=== PATIENT | female | born 1935 ===

== ENCOUNTER 2023-07-18 20:15 | Inpatient (IN) | payer MEDICARE, OTHER ==
[~2023-07-18] VITALS: Ht 152.4 cm; Wt 61.7 kg
[2023-07-18 20:25] VITALS: BP 130/60; TEMP 98; O2SAT 93
[2023-07-18] MEDS ORDERED: LEVO50TA8 PO (22:10)
[2023-07-18] MEDS ORDERED: SIMV-46 PO (22:10)
[2023-07-18] MEDS ORDERED: FURO20TA4 PO (22:10)
[2023-07-18] MEDS ORDERED: PRED20TA PO (22:10)
[2023-07-18] MEDS ORDERED: LIOT5TAB11 PO (22:10)
[2023-07-18] MEDS ORDERED: LISI20TA30 PO (22:10)
[2023-07-18] MEDS ORDERED: APIX2.5T PO (22:10)
[2023-07-18] MEDS ORDERED: OXYC-128 PO (22:10)
[2023-07-18] MEDS ORDERED: GLUC-199 PO (22:10)
[2023-07-18] MEDS ORDERED: GABA600T12 PO (22:10)
[2023-07-18] MEDS ORDERED: ISOS20TA15 PO (22:10)
[2023-07-18] MEDS ORDERED: ACET-73 PO (22:10)
[2023-07-18] MEDS ORDERED: REMEDY ESSENTIAL ZINC PASTE 113 GM TOP SCH (23:45)
[2023-07-19 06:03] VITALS: BP 150/61; TEMP 98.6; O2SAT 94
[2023-07-19] MEDS ORDERED: AMLO5TAB4 PO (12:53)
[2023-07-19] MEDS ORDERED: LEVO88TA5 PO (12:59)
[2023-07-19] MEDS ORDERED: METO-357 PO (12:59)
[2023-07-19] MEDS ORDERED: GLIP10TA11 PO (12:59)
[2023-07-19] MEDS ORDERED: PANT40TA49 PO (13:06)
[2023-07-19] MEDS ORDERED: CARV6.25 PO (13:06)
[2023-07-19] MEDS ORDERED: ICOS1CAP PO (13:06)
[2023-07-19] MEDS ORDERED: ATOR40TA PO (13:06)
[2023-07-19] MEDS ORDERED: LOSA25TA27 PO (13:06)
[2023-07-19] MEDS ORDERED: LEVE500T9 PO (13:07)
[2023-07-19] MEDS ORDERED: METF-494 PO (13:08)
[2023-07-19 15:41] VITALS: BP 132/52; TEMP 98.6; O2SAT 94
[2023-07-19] MEDS ORDERED: glipiZIDE 10 MG TABLET PO SCH (16:30)
[2023-07-19] MEDS ORDERED: levETIRAcetam 500 MG TABLET PO SCH (17:00)
[2023-07-19] MEDS ORDERED: Icosapent Ethyl (Vascepa) 2 CAP) PO SCH (17:00)
[2023-07-19] MEDS ORDERED: DEXTROSE 50% 50 ML DISP.SYRIN IV PRN (17:45)
[2023-07-19] MEDS: CARVEDILOL 6.25 MG TABLET PO SCH (17:55)
[2023-07-19] MEDS: AMLODIPINE 5 MG TABLET PO SCH (17:55)
[2023-07-19] MEDS ORDERED: METFORMIN XR 500 MG TAB.SR.24H PO SCH (18:00)
[2023-07-19] MEDS: METFORMIN XR 500 MG TAB.SR.24H PO SCH (18:32)
[2023-07-19 20:20] VITALS: BP 104/46; TEMP 97.9; O2SAT 94
[2023-07-19] MEDS: ATORVASTATIN 40 MG TABLET PO SCH (21:04)
[2023-07-19] MEDS: FAMOTIDINE 20 MG TABLET PO SCH (21:07)
[2023-07-19] MEDS: BLOOD SUGAR DIAGNOSTIC 1 EACH STRIP VI SCH (21:19)
[2023-07-20 06:00] VITALS: TEMP 97.8
[2023-07-20] MEDS: LEVOTHYROXINE SODIUM 88 MCG TABLET PO SCH (06:41)
[2023-07-20] MEDS ORDERED: PANTOPRAZOLE SODIUM 40 MG TABLET.DR PO SCH (07:00)
[2023-07-20 07:29] LABS: BASOPHILS % (AUTO) 0.5 % (0.0-2.0); EOSINOPHILS # (AUTO) 0.1 K/uL (0.0-0.7); HEMATOCRIT 27.6 % (31.2-41.9); HEMOGLOBIN 9.2 g/dL (10.9-14.3); LYMPHOCYTES # (AUTO) 1.4 K/uL (0.8-4.8); LYMPHOCYTES % (AUTO) 24.8 % (20.5-51.5); MEAN CORPUSCULAR HEMOGLOBIN 27.2 uug (24.7-32.8); MEAN CORPUSCULAR HGB CONC 33 g/dL (32.3-35.6); MEAN CORPUSCULAR VOLUME 81.6 fL (75.5-95.3); MONOCYTES # (AUTO) 0.4 K/uL (0.1-1.30); MONOCYTES % (AUTO) 7.1 % (0.0-11.0); NEUTROPHILS # (AUTO) 3.7 K/uL (1.8-8.9); NEUTROPHILS % (AUTO) 65.6 % (38.5-71.5); PLATELET COUNT (AUTO) 255 K/uL (179-408); RED BLOOD CELL COUNT(AUTO) 3.38 MIL/uL (3.63-4.92); RED CELL DISTRIBUTION WIDTH 16.6 % (12.3-17.7); WHITE BLOOD COUNT (AUTO) 5.7 K/uL (3.8-11.8)
[2023-07-20 07:45] LABS: DIFFERENTIAL COMMENT 1
[2023-07-20 07:50] LABS: CALCIUM 8.5 mg/dL (8.5-10.1); CARBON DIOXIDE 27 mmol/L (21-32); CHLORIDE 106 mmol/L (98-107); CREATININE 0.6 mg/dL (0.6-1.3); GLUCOSE 89 mg/dL (74-106); MAGNESIUM 1.8 mg/dL (1.8-2.4); POTASSIUM 3.1 mmol/L (3.5-5.1); SODIUM SERUM 140 mmol/L (136-145); UREA NITROGEN, BLOOD 11 mg/dL (7-18)
[2023-07-20] MEDS ORDERED: LOSARTAN POTASSIUM 25 MG TABLET PO SCH (09:00)
[2023-07-20] MEDS: AMLODIPINE 5 MG TABLET PO SCH (09:28)
[2023-07-20] MEDS: PROPRANOLOL HCL 20 MG TABLET PO SCH (09:28)
[2023-07-20] MEDS: INSULIN REGULAR, HUMAN 300 UNIT/3 ML VIAL SQ PRN (09:30)
[2023-07-20] MEDS: POTASSIUM CHLORIDE 20 MEQ TAB.PRT.SR PO ONE (09:48)
[2023-07-20] MEDS: PROPRANOLOL HCL 40 MG TABLET PO SCH (12:44)
[2023-07-20] MEDS ORDERED: PROPRANOLOL HCL 20 MG TABLET PO SCH (13:00)
[2023-07-20 15:43] VITALS: BP 97/45; TEMP 97.5; O2SAT 96
[2023-07-20 20:00] VITALS: BP 110/56; TEMP 98.5; O2SAT 94
[2023-07-21 06:00] VITALS: BP 146/48; TEMP 97.6; O2SAT 98
[2023-07-21 15:17] VITALS: BP 112/48; TEMP 97.8; O2SAT 98
[2023-07-21 20:00] VITALS: BP 116/48; TEMP 98; O2SAT 93
[2023-07-22 06:00] VITALS: BP 123/50; TEMP 97.4; O2SAT 95
[2023-07-22] MEDS: PRIMIDONE 50 MG TABLET PO SCH (09:20)
[2023-07-22 11:48] VITALS: BP 121/67; TEMP 97.7; O2SAT 97
[2023-07-22 16:09] VITALS: BP 84/66; TEMP 97.4; O2SAT 98
[2023-07-22 17:08] VITALS: BP 125/58; TEMP 97.4; O2SAT 98
[2023-07-22] MEDS: REMEDY ESSENTIAL ZINC PASTE 113 GM TOP PRN (20:59)
[2023-07-22 21:00] VITALS: BP 147/55; TEMP 97.5; O2SAT 97
[2023-07-23] MEDS: ACETAMINOPHEN 325 MG TABLET PO PRN (03:08)
[2023-07-23 04:00] VITALS: BP 126/41; TEMP 98.7; O2SAT 91
[2023-07-23 07:10] LABS: BASOPHILS % (AUTO) 0.6 % (0.0-2.0); EOSINOPHILS # (AUTO) 0.1 K/uL (0.0-0.7); EOSINOPHILS % (AUTO) 1.9 % (0.0-7.0); HEMATOCRIT 27.5 % (31.2-41.9); HEMOGLOBIN 9.5 g/dL (10.9-14.3); LYMPHOCYTES # (AUTO) 1.8 K/uL (0.8-4.8); LYMPHOCYTES % (AUTO) 29.6 % (20.5-51.5); MEAN CORPUSCULAR HEMOGLOBIN 28.1 uug (24.7-32.8); MEAN CORPUSCULAR HGB CONC 35 g/dL (32.3-35.6); MEAN CORPUSCULAR VOLUME 81.6 fL (75.5-95.3); MONOCYTES # (AUTO) 0.4 K/uL (0.1-1.30); NEUTROPHILS # (AUTO) 3.7 K/uL (1.8-8.9); NEUTROPHILS % (AUTO) 60.9 % (38.5-71.5); PLATELET COUNT (AUTO) 267 K/uL (179-408); RED BLOOD CELL COUNT(AUTO) 3.37 MIL/uL (3.63-4.92); RED CELL DISTRIBUTION WIDTH 16.4 % (12.3-17.7)
[2023-07-23 07:22] LABS: DIFFERENTIAL COMMENT 1
[2023-07-23 07:30] LABS: CARBON DIOXIDE 27 mmol/L (21-32); CHLORIDE 105 mmol/L (98-107); CREATININE 0.7 mg/dL (0.6-1.3); GLUCOSE 95 mg/dL (74-106); MAGNESIUM 1.6 mg/dL (1.8-2.4); PHOSPHOROUS 4.1 mg/dL (2.5-4.9); SODIUM SERUM 139 mmol/L (136-145); UREA NITROGEN, BLOOD 14 mg/dL (7-18)
[2023-07-23] MEDS ORDERED: CLONIDINE-TTS 1 PATCH TD SCH (09:00)
[2023-07-23] MEDS ORDERED: CLONIDINE TTS 2 PATCH TD SCH (09:00)
[2023-07-23] MEDS: POTASSIUM CHLORIDE 10 MEQ TAB.PRT.SR PO ONE (10:26)
[2023-07-23] MEDS ORDERED: BENZOCAINE/MENTH/CETYLPYRD LOZENGE MM PRN (10:45)
[2023-07-23] MEDS: MAGNESIUM OXIDE 400 MG TABLET PO ONE (13:24)
[2023-07-23 16:37] VITALS: BP 113/56; TEMP 97.6; O2SAT 95
[2023-07-24 05:16] VITALS: BP 118/55; TEMP 97.1
[2023-07-24] MEDS: ENSURE ENLIVE (VAN) 240 ML LIQUID PO SCH (09:03)
[2023-07-24 13:06] VITALS: BP 95/44
[2023-07-24 16:48] VITALS: BP 128/58; TEMP 97.6; O2SAT 97
[2023-07-24 20:00] VITALS: BP 146/59; TEMP 98.1; O2SAT 95
[2023-07-25 06:00] VITALS: BP 114/52; TEMP 97.8; O2SAT 96
[2023-07-25 16:00] VITALS: BP 127/50; TEMP 98.3; O2SAT 97
[2023-07-25 20:00] VITALS: TEMP 98.3
[2023-07-26 06:00] VITALS: TEMP 98.3
[2023-07-26 13:46] VITALS: BP 97/36
[2023-07-26 16:26] VITALS: BP 108/47; TEMP 98.1; O2SAT 94
[2023-07-26 20:00] VITALS: BP 110/52; TEMP 98.2; O2SAT 95
[2023-07-27 06:00] VITALS: BP 102/51; TEMP 98; O2SAT 96
[2023-07-27 07:40] LABS: BASOPHILS % (AUTO) 0.8 % (0.0-2.0); EOSINOPHILS # (AUTO) 0.1 K/uL (0.0-0.7); EOSINOPHILS % (AUTO) 2.2 % (0.0-7.0); HEMATOCRIT 27.8 % (31.2-41.9); HEMOGLOBIN 9.2 g/dL (10.9-14.3); LYMPHOCYTES # (AUTO) 1.9 K/uL (0.8-4.8); LYMPHOCYTES % (AUTO) 29.8 % (20.5-51.5); MEAN CORPUSCULAR HEMOGLOBIN 27.1 uug (24.7-32.8); MEAN CORPUSCULAR HGB CONC 33 g/dL (32.3-35.6); MEAN CORPUSCULAR VOLUME 81.5 fL (75.5-95.3); MONOCYTES # (AUTO) 0.4 K/uL (0.1-1.30); MONOCYTES % (AUTO) 6.8 % (0.0-11.0); NEUTROPHILS # (AUTO) 3.8 K/uL (1.8-8.9); NEUTROPHILS % (AUTO) 60.4 % (38.5-71.5); PLATELET COUNT (AUTO) 259 K/uL (179-408); RED BLOOD CELL COUNT(AUTO) 3.41 MIL/uL (3.63-4.92); WHITE BLOOD COUNT (AUTO) 6.3 K/uL (3.8-11.8)
[2023-07-27 07:56] LABS: DIFFERENTIAL COMMENT 1
[2023-07-27 08:06] LABS: THYROID STIMULATING HORMONE 3.393 mIU/mL (0.358-3.740)
[2023-07-27 08:18] LABS: ALANINE AMINOTRANSFERASE 12 U/L (14-59); ALBUMIN 2.6 g/dL (3.4-5.0); ALKALINE PHOSPHATASE 100 U/L (50-136); ASPARTATE AMINOTRANSFERASE 14 U/L (15-37); BILIRUBIN,TOTAL 0.9 mg/dL (0.2-1.0); CALCIUM 8.2 mg/dL (8.5-10.1); CARBON DIOXIDE 28 mmol/L (21-32); CHLORIDE 104 mmol/L (98-107); CHOLESTEROL 92 mg/dL (<200); CREATININE 0.6 mg/dL (0.6-1.3); GLUCOSE 99 mg/dL (74-106); HDL CHOLESTEROL 33 mg/dL (40-60); MAGNESIUM 1.6 mg/dL (1.8-2.4); PHOSPHOROUS 3.7 mg/dL (2.5-4.9); POTASSIUM 3.1 mmol/L (3.5-5.1); SODIUM SERUM 135 mmol/L (136-145); TOTAL PROTEIN, SERUM 5.7 g/dL (6.4-8.2); TRIGLYCERIDES 141 MG/DL (30-150); UREA NITROGEN, BLOOD 11 mg/dL (7-18)
[2023-07-27 08:30] VITALS: BP 114/52; TEMP 98; O2SAT 98
[2023-07-27 08:57] LABS: IRON, SERUM 20 ug/dL (50-175)
[2023-07-27] MEDS: POTASSIUM CHLORIDE 20 MEQ TAB.PRT.SR PO ONE (11:08)
[2023-07-27] MEDS: MAGNESIUM OXIDE 400 MG TABLET PO ONE (11:09)
[2023-07-27 14:48] VITALS: BP 106/40; TEMP 98.4; O2SAT 95
[2023-07-27] MEDS: GLUCERNA SHAKE 237 ML CAN PO SCH (17:54)
[2023-07-27] MEDS: PRIMIDONE 50 MG TABLET PO SCH (17:56)
[2023-07-27 20:00] VITALS: BP 108/63; TEMP 98.1; O2SAT 93
[2023-07-28 06:00] VITALS: BP 126/58; TEMP 98.3; O2SAT 94
[2023-07-28 16:00] VITALS: BP 113/42; TEMP 98; O2SAT 96
[2023-07-28 19:30] VITALS: BP 118/53; TEMP 98.4; O2SAT 95
[2023-07-28 20:00] VITALS: BP 118/53; TEMP 98.4; O2SAT 95
[2023-07-29 06:01] VITALS: BP 125/50; TEMP 97.7; O2SAT 95
[2023-07-29 09:39] LABS: BASOPHILS # (AUTO) 0.3 K/UL (0.0-0.2); BASOPHILS % (AUTO) 3.9 % (0.0-2.0); EOSINOPHILS # (AUTO) 0.2 K/uL (0.0-0.7); EOSINOPHILS % (AUTO) 2.6 % (0.0-7.0); HEMOGLOBIN 9.4 g/dL (10.9-14.3); LYMPHOCYTES # (AUTO) 1.4 K/uL (0.8-4.8); LYMPHOCYTES % (AUTO) 19.9 % (20.5-51.5); MEAN CORPUSCULAR HEMOGLOBIN 26.3 uug (24.7-32.8); MEAN CORPUSCULAR HGB CONC 33 g/dL (32.3-35.6); MEAN CORPUSCULAR VOLUME 80.8 fL (75.5-95.3); MONOCYTES # (AUTO) 0.4 K/uL (0.1-1.30); MONOCYTES % (AUTO) 5.3 % (0.0-11.0); NEUTROPHILS # (AUTO) 4.7 K/uL (1.8-8.9); NEUTROPHILS % (AUTO) 68.3 % (38.5-71.5); PLATELET COUNT (AUTO) 298 K/uL (179-408); RED BLOOD CELL COUNT(AUTO) 3.59 MIL/uL (3.63-4.92); RED CELL DISTRIBUTION WIDTH 16.3 % (12.3-17.7); WHITE BLOOD COUNT (AUTO) 6.9 K/uL (3.8-11.8)
[2023-07-29 09:45] LABS: CALCIUM 8.2 mg/dL (8.5-10.1); CARBON DIOXIDE 26 mmol/L (21-32); CHLORIDE 103 mmol/L (98-107); CREATININE 0.8 mg/dL (0.6-1.3); GLUCOSE 215 mg/dL (74-106); POTASSIUM 3.4 mmol/L (3.5-5.1); SODIUM SERUM 138 mmol/L (136-145); UREA NITROGEN, BLOOD 11 mg/dL (7-18)
[2023-07-29 10:11] LABS: DIFFERENTIAL COMMENT 1
[2023-07-29 12:00] VITALS: BP 108/63; TEMP 98.3; O2SAT 97
[2023-07-29 16:54] VITALS: BP 115/40; TEMP 98.2; O2SAT 95
[2023-07-29 20:00] VITALS: BP 121/57; TEMP 98.3; O2SAT 95
[2023-07-29] MEDS: MIRALAX 17 GM POWD.PACK PO SCH (20:37)
[2023-07-30 06:07] VITALS: BP 131/46; TEMP 97.7; O2SAT 96
[2023-07-30 16:01] VITALS: BP 128/58; TEMP 98.7; O2SAT 99
[2023-07-30 20:00] VITALS: BP 113/42; TEMP 97.4; O2SAT 99
[2023-07-31 04:45] VITALS: BP 106/43; TEMP 98.2; O2SAT 98
[2023-07-31 09:00] VITALS: BP 111/48; TEMP 98.1; O2SAT 95
[2023-07-31 15:52] VITALS: BP 107/42; TEMP 98.9; O2SAT 95
[2023-07-31 19:40] VITALS: BP 115/45; TEMP 98.6; O2SAT 96
[2023-08-01 06:04] VITALS: BP 118/63; TEMP 97.9; O2SAT 95
[2023-08-01 08:05] VITALS: BP 120/52; O2SAT 96
[2023-08-01 16:00] VITALS: BP 117/60; TEMP 97.6; O2SAT 96
[2023-08-01 19:30] VITALS: BP 112/55; TEMP 98.2; O2SAT 97
[2023-08-02 06:27] VITALS: BP 137/50; TEMP 98.2; O2SAT 95
[2023-08-02 07:46] VITALS: BP 117/55; TEMP 97.9; O2SAT 97
[2023-08-02] MEDS ORDERED: HYDROCORTISONE 2.5 % RECTAL CREAM 28.35 GM TUBE RC PRN (11:00)
[2023-08-02 12:56] VITALS: BP 99/39
[2023-08-02 16:00] VITALS: BP 132/69; TEMP 92.2; O2SAT 98
[2023-08-02 16:56] VITALS: BP 108/54; TEMP 97.8; O2SAT 95
[2023-08-02] MEDS: LIDOCAINE 5% OINT 35.44 GM TUBE TOP PRN (20:12)
[2023-08-02] MEDS: HYDROCORTISONE 2.5 % RECTAL CREAM 28.35 GM TUBE RC PRN (20:12)
[2023-08-02 20:30] VITALS: BP 114/57; TEMP 98; O2SAT 95
[2023-08-03 06:35] VITALS: BP 140/54; TEMP 97.6; O2SAT 97
[2023-08-03 15:21] VITALS: BP 105/50; TEMP 97.9; O2SAT 97
[2023-08-03] MEDS: LIDOCAINE 5% OINT 35.44 GM TUBE TOP SCH (17:25)
[2023-08-03] MEDS: HYDROCORTISONE 2.5 % RECTAL CREAM 28.35 GM TUBE RC SCH (17:26)
[2023-08-03 20:00] VITALS: BP 112/52; TEMP 98; O2SAT 100
[2023-08-04 06:00] VITALS: BP 134/49; TEMP 97.2; O2SAT 97
[2023-08-04 16:00] VITALS: BP 117/60; TEMP 98; O2SAT 97
[2023-08-04 20:00] VITALS: BP 120/51; TEMP 98.1; O2SAT 93
[2023-08-05 06:00] VITALS: BP 119/48; TEMP 97.4; O2SAT 96
== END 2023-08-05 15:45 | disposition home health service (06) | DRG 949 ==
PROVIDERS: ADMIT Physical Medicine & Rehabilitation Pain Medicine; ATTEND Physical Medicine & Rehabilitation Pain Medicine
DX: S06.5XAD Traumatic subdural hemorrhage with loss of consciousness status unknown, subsequent encounter (principal); G93.41 Metabolic encephalopathy; D68.59 Other primary thrombophilia; N39.0 Urinary tract infection, site not specified; W19.XXXD Unspecified fall, subsequent encounter; Z87.440 Personal history of urinary (tract) infections; E03.9 Hypothyroidism, unspecified; E11.9 Type 2 diabetes mellitus without complications; G25.0 Essential tremor; I10 Essential (primary) hypertension; I25.10 Atherosclerotic heart disease of native coronary artery without angina pectoris; R13.10 Dysphagia, unspecified; Z91.81 History of falling; R29.6 Repeated falls; E78.5 Hyperlipidemia, unspecified; D32.0 Benign neoplasm of cerebral meninges; D50.9 Iron deficiency anemia, unspecified; E87.6 Hypokalemia; K64.4 Residual hemorrhoidal skin tags; Z88.0 Allergy status to penicillin; Z95.5 Presence of coronary angioplasty implant and graft
CPT/HCPCS: 36415; 70450; 82652; 83550; 83735; 84100; 84443; 85025; 97535-GO-CO; A4663; J1815